=== PATIENT | female | born 1960 | race Two or more races ===

== ENCOUNTER 2016-05-06 11:12 | Emergency (ER) | payer MEDICARE, MEDICAID ==
--- NOTE | ~2016-05-06 | ER ---
PATIENT'S NAME: [facility] AGE: 55 Y [address] ROOM: [place] [id number] LOCATION: [facility] ADMIT DATE: 05/06/2016 ER/Outpatient Report DISCHARGE DATE: 05/06/2016 FAMILY PHYSICIAN: PHYSICIAN, NO ATTENDING PHYSICIAN: Rosalva Bunn TIME OF ARRIVAL: 1112 hours. TIME SEEN: 1138 hours. IDENTIFICATION: A 55-year-old female. CHIEF COMPLAINT: Back pain. HISTORY OF PRESENT ILLNESS: The patient is a 55-year-old female from [place], who is here helping a family member move. She has been here for 2 weeks. Last night, she lifted boxes and furniture and developed pain in her left low back, radiating down to just below her left buttock. No bowel or bladder problems. No numbness or tingling. She feels this is a pinching sensation. She tried ibuprofen and Aleve with no relief. She has a history of low back pain degenerative disease several years ago. She has no primary care physician, but plans to establish care in approximately 1 month in [place]. PAST MEDICAL HISTORY: ALLERGIES: SULFA CAUSES RASH. CURRENT MEDICATIONS: 1. Ibuprofen. 2. Aleve. 3. Albuterol inhaler. MEDICAL PROBLEMS: COPD, low back pain. PRIOR SURGERY: Tubal ligation and cholecystectomy. SOCIAL HISTORY: PATIENT'S NAME: BHAVANA [facility] AGE: 55 Y [address] ROOM: [place] [address] LOCATION: [facility] ADMIT DATE: 05/06/2016 ER/Outpatient Report DISCHARGE DATE: 05/06/2016 FAMILY PHYSICIAN: PHYSICIAN, NO ATTENDING PHYSICIAN: Rosalva Bunn The patient lives in [place]. She does not work outside the home. Tobacco use, half pack per day for 35 years. Alcohol use, denies. Drug use, denies. REVIEW OF SYSTEMS: All systems reviewed and negative other than what is noted in the HPI. PHYSICAL EXAMINATION: VITAL SIGNS: Height 5 feet 2 inches, weight 77.8 kg, blood pressure 149/82, pulse 94, respirations 20, temperature 97.4, sats 92% on room air. GENERAL: A 55-year-old female, in [id number] distress. HEENT: Unremarkable. LUNGS: Clear to auscultation. HEART: Regular rate and rhythm. No murmur, rub, or gallop. ABDOMEN: Bowel sounds present. Soft, nondistended. No hepatosplenomegaly. No palpable masses. Nontender. MUSCULOSKELETAL: Tender to palpation in the left lumbar spine paraspinal region. No palpable deformities. Decreased range of motion secondary to pain. Negative straight leg raise. Reflexes are normal. Sensation is intact to light touch and strength is 5/5 throughout. IMPRESSION: Acute exacerbation of chronic low back pain. PLAN: The patient did not want an injection of Toradol, Valium 2 mg 1/2 to 1 tablet q.8 hours p.r.n. spasm, [place] 5/325 1-2 p.o. q.4-6 hours p.r.n. pain, back pain handout Advil or Aleve as directed for [id number] pain. [place] for severe pain. Valium for spasm. Ice as needed. No heavy lifting. Side effects could include drowsiness. Follow up with physician of choice or spine surgeon to include Dr. Horowitz, Dr. Mena, or Dr. Yang, if no improvement or symptoms worsen. The patient understands and agrees, and all questions have been answered. ROSALVA BUNN MD CAR/modl /[id number] d: 05/06/16 1750 t: 05/13/16 1423, OUTPATIENT REPORT
== END 2016-05-06 11:47 | disposition disaster alternative care site (69) ==
LOC: GACC 11:12
DX: G89.29 Other chronic pain (principal); M54.5 Low back pain; Z98.51 Tubal ligation status; Z90.49 Acquired absence of other specified parts of digestive tract; Z88.2 Allergy status to sulfonamides